=== PATIENT | female | born 1975 | race Caucasian/White ===

== ENCOUNTER 2017-03-06 01:32 | Observation (INO) ==
[2017-03-06] MEDS ORDERED: *HR* Morphine 2 MG/ML SYRINGE IVP PRN (03:50)
[2017-03-06] MEDS ORDERED: Ondansetron 4 MG/2 ML VIAL IVP PRN ×2 (03:51→12:02)
[2017-03-06] MEDS ORDERED: D5% in Lactated Ringers 1,000 ML IVC SCH (04:00)
[2017-03-06] MEDS ORDERED: *HR* HYDROmorphone (PF) 1 MG/ML SYRINGE IVP PRN ×2 (04:30→10:41)
[2017-03-06] MEDS: Piperacillin/Tazobactam 3.375 GM/200 ML BAG IVPB SCH ×2 (05:47→11:51)
[2017-03-06] MEDS ORDERED: Nicotine 21 MG PATCH.TD24 TD SCH ×2 (09:00→12:45)
--- NOTE | 2017-03-06 09:15 | General Surg History&Physical ---
<Josiane Mclaughlin - Last Filed: 03/06/17 09:11> Date of Encounter: 03/06/17 Time of Encounter: 09:11 Assessment and Plan (1) Acute appendicitis Current Visit: Yes Status: Acute Patient presented to the hospital and found to have acute appendicitis on imaging done at [facility]. The surgery was discussed with the patient. She expressed understanding and agreement. All questions were answered. She is to be taken to surgery this morning. Qualifiers: Acute appendicitis type: unspecified acute appendicitis type Qualified Code (s): K35.80 - Unspecified acute appendicitis History of Present Illness Chief complaint: right lower quadrant pain HPI: Ms. Salazar is a 42 year old female with a past medical history of anxiety and GERD who presented to the [facility] as a transfer from [facility]. Appnedicitis was diagnosed upon imaging. She complained of right lower quadrant pain that began yesterday at 3 PM while she was at work. She then left work and went home however the pain continued to progress and worsen. She said it started in her lower back then radiated around to her right side. She described it as sharp. Nothing made it better or worse. She had nausea and dry heaves. She denied fever, chills. She is a current one 1-2 pack per day smoker for 20 years. Denied drug use. Prior surgeries or tubal ligation. Past Med Surg Social Fam HX - Past Medical History Medical history: no medical history, GERD Psychiatric history: anxiety - Past Surgical History Surgical History: other (tubal ligation) - Social History Smoking Status: Current every day smoker Packs per day: 2 Smokeless Tobacco Status: No Alcohol use: occasionally Drug use: none Medications and Allergies Omeprazole [PriLOSEC] 20 mg PO DAILY 03/06/17 [History] Venlafaxine [Effexor] 75 mg PO DAILY 03/06/17 [History] diazePAM [Valium] 5 mg PO TID 03/06/17 [History] 3 Allergy/AdvReac Type Severity Reaction Status Date / Time No Known Allergies Allergy Verified 03/06/17 03:48 Review of Systems All systems PM: A 10-system review of systems was performed and is negative for pertinent findings except as documented above in the HPI. - Constitutional no chills, no fever(s), no headache(s) - Cardiovascular no chest pain, no palpitations - Respiratory no cough, no dyspnea - Gastrointestinal abdominal pain, nausea, no vomiting - Neurological no dizziness - Psychiatric anxiety General Surgery Exam Initial Vital Signs Temp Pulse Resp BP Pulse Ox 99.2 F 96 15 160/90 97 03/06/17 03:10 03/06/17 03:10 03/06/17 03:10 03/06/17 03:10 03/06/17 03:10 - General physical appearance well developed, well nourished, no distress - Eyes normal ocular movement. negative: icteric - Respiratory normal expansion, normal respiratory effort - Cardiovascular Cardiovascular exam: Present: RRR - Abdomen Abdomen general surgery: Present: bowel sounds present, soft, tender Abdominal Tenderness: Present: RLQ - Integumentary Integumentary general surgery: Present: no abnormal pigmentation - Neurologic Present: normal coordination - Psychiatric Psychiatric general surgery: Present: A&Ox3 Results - Labs All other labs normal. <Tian Parish - Last Filed: 03/06/17 09:44> Date of Encounter: 03/06/17 History of Present Illness HPI: Ms. Salazar is a 42 year old female Review of Systems All systems PM: A 10-system review of systems was performed and is negative for pertinent findings except as documented above in the HPI. General Surgery Exam Initial Vital Signs Temp Pulse Resp BP Pulse Ox 99.2 F 96 15 160/90 97 03/06/17 03:10 03/06/17 03:10 03/06/17 03:10 03/06/17 03:10 03/06/17 03:10 Results - Labs All other labs normal. - Attending Attestation patient seen and examined. I have reviewed all pertinent labs, imaging, and pertinent notes, including this one. I agree with the above assessment and plan and wish to add the following... 42M with 2 days of worsening abdominal pain localized to the right side with associated nausea and vomiting (dry heaves), leukocytosis and what looks like fat stranding and acute appendicitis; plan for OR today for lap appy; discussed with the patient, risks, benefits, and alternatives. She is in agreement with surgery
--- NOTE | 2017-03-06 09:28 | Anesthesia Evaluation PreOp ---
Date of Encounter: 03/06/17 Time of Encounter: 09:45 - Past History Planned Operation: lap appy Cardiac History: Denies any Significant Hx Pulmonary History: Smoker, Pack/yr (30+) POST PARTUM NURSE History: Denies Any Significant HX Other Medical History: Denies Any Significant HX Anesthesia History: No Prior Anesthetic Complications, Past Anesthesia (tubal) : No Test: Negative Alcohol Use: occasionally Drug use: none Medications and Allergies Omeprazole [PriLOSEC] 20 mg PO DAILY 03/06/17 [History] Venlafaxine [Effexor] 75 mg PO DAILY 03/06/17 [History] diazePAM [Valium] 5 mg PO TID 03/06/17 [History] 3 Allergy/AdvReac Type Severity Reaction Status Date / Time No Known Allergies Allergy Verified 03/06/17 03:48 - Meds/Allergy Pre-op Review Medications Reviewed: Yes Allergies Reviewed: Yes Beta Blockers on Current Med List: No Anesthesia Exam Selected Entries 03/06/17 06:37 Temperature 98.7 F Pulse Rate 86 Respiratory Rate 14 Blood Pressure 118/69 O2 Sat by Pulse Oximetry 99 Weight: 58kg NPO (# of Hours): 8 - HEENT Pupil (Motor): EOMI Mallampati: II Teeth: Normal Oral Opening: Greater than 3 - POST PARTUM NURSE LOC: Oriented POST PARTUM NURSE Motor: Normal RUE, Normal LUE, Normal RLE, Normal LLE, Normal Face POST PARTUM NURSE Sensory: Normal: RUE, LUE, RLE, LLE, Face - Cardiac Rhythm: Regular Murmur: None - Pulmonary Breath Sounds: bilateral Clear Respiratory Effort: Symmetrical Anesthesia Assess/Plan ASA Score: 2 Modified [place] Scale for Level of Consciousness: Cooperative, oriented, and tranquil Anesthetic Plan: General Monitoring Plan: Standard Monitors Recovery Plan: PACU (agrees to GA)
[2017-03-06] MEDS ORDERED: *HR* Promethazine 25 MG/ML VIAL IVP PRN (10:41)
[2017-03-06] MEDS ORDERED: Ondansetron 4 MG/2 ML VIAL IVP ONE (10:41)
[2017-03-06] MEDS ORDERED: *HR* Labetalol 20 MG/4 ML SYRINGE IVP PRN (10:41)
[2017-03-06] MEDS ORDERED: *HR* Propofol 200 MG/20 ML VIAL IVP ONE (10:44)
[2017-03-06] MEDS ORDERED: *HR* Rocuronium Bromide 50 MG/5 ML VIAL ONE (10:44)
[2017-03-06] MEDS ORDERED: Dexamethasone 4 MG/ML VIAL ONE (10:44)
[2017-03-06] MEDS ORDERED: *HR* FentaNYL (PF) 100 MCG/2 ML VIAL ONE (10:44)
[2017-03-06] MEDS ORDERED: Lidocaine -MPF 2% 2 ML VIAL ONE (10:44)
[2017-03-06] MEDS ORDERED: *HR* Midazolam HCl 2 MG/2 ML VIAL ONE (10:44)
[2017-03-06] MEDS ORDERED: Lacri-Lube 3.5 GM TUBE ONE (10:44)
[2017-03-06] MEDS ORDERED: Lidocaine -MPF 4% 5 ML AMPUL ONE (10:44)
[2017-03-06] MEDS ORDERED: Neostigmine Methylsulfate 3 MG/3 ML SYRINGE ONE (10:50)
[2017-03-06] MEDS ORDERED: *HR* HYDROmorphone 2 MG/ML SYRINGE ONE (10:58)
--- NOTE | 2017-03-06 11:46 | Anesthesia Evaluation Post Op ---
Date of Encounter: 03/06/17 Time of Encounter: 11:45 - Vital Signs Vital Signs: Selected Entries 03/06/17 11:16 03/06/17 11:36 Temperature 97.2 F L Pulse Rate 76 Respiratory Rate 16 Blood Pressure 131/77 O2 Sat by Pulse Oximetry 100 Oxygen Flow Rate (LPM) 2 - Lungs Lungs: Clear Ascult./Percussion - Airway Airway: Non-obstructed - Cardiovascular Regular Rate - Mental Status Mental Status: Alert & Oriented, Answers Appropriately - Nausea Vomiting Nausea Vomiting: Not Present - Hydration Hydration: Ice chips - Discharge PostOp Status: Transfer Patient to floor
--- NOTE | 2017-03-06 11:48 | Operative Note ---
Date of procedure: 03/06/17 Pre-op diagnosis: acute appendicitis Post-op diagnosis: same Procedure: laparoscopic appendectomy Complications: none Anesthesia: GETA Local Anesthetics: 0.5% Sensorcaine HCL SubQ (cc) Surgeon: Tian Parish Was there an certified first assistant present: No Estimated blood loss (cc): 5 Specimen: appendix Condition: stable Disposition: PACU Procedure in Detail: The patient was brought into the operating room suite. The patient was placed in the supine position. Mechanical DVT prophylaxis was initiated. The patient underwent smooth induction of general endotracheal anesthesia. The patient was prepped and draped in the usual fashion. Preoperative antibiotics were given. A timeout was held identifying the correct patient, pathology, and procedure. Everyone was in agreement and we began a procedure. Incision to Mesenteric Window I started bycreating a supraumbilical incision and via open Cha technique entered into the abdomen. I then used a Vicryl suture on a UR 6 needle in a [id number] fashion to reapproximate but not close the fascia. I then inserted the 10 trocar followed by the camera to visualize the intraabdominal cavity. I then created a 5 mm incision suprapubically and inserted the 5 mm trocar under direct visualization. Roughly 1 handbreadth lateral to the umbilical incision I created another 5 mm incision and inserted another 5 mm trocar under direct visualization. I then inserted the nontraumatic instruments into the 5 mm ports and began the procedure. I was able to identify the tinea coli coalescing at the base of the cecum to identify the appendix. The appendix was visibly inflamed. Using the nontraumatic grasper I was able to grasp the appendix and then using the [place] dissector was able to create a mesenteric window. Mesenteric Window to Appendectomy I then inserted the nontraumatic grasper into the same mesenteric window to widen it. I then grasped the appendix and switched from the 10 mm camera to the 5 mm camera so that we can insert the stapler through the umbilical port. The teeth of the stapler through the mesenteric window. It should be stated that the stapler was a 45 mm bowel load stapler. It was positioned at the base of the appendix and I was able to confirm under direct visualization that the teeth contained no other structures such as the cecum. I then fired the stapler and resected the appendix from the base of the cecum. I then loaded up a vascular load stapler and then in the similar fashion did fire across the mesentery. Retrieval to Closure I then inserted the Endo Catch bag to retrieve the specimen which was intact upon retrieval. I then switched back to the 10 mm camera and inserted the nontraumatic grasper as well as a suction-cargo agent into the 5 mm ports. And under direct visualization I was able to appreciate the staple line of the mesoappendix as well as the staple line of the base of the cecum. There was no obvious leaking nor bleeding. The pelvis did not have any collection of fluid. I then concluded the procedure, turned off the insufflation, removed the trochars under direct visualization, and then closed the umbilical fascia using the Vicryl suture that was placed at the beginning. I then closed all incisions with interrupted 4-0 Monocryl. And then sealed with Dermabon. It should be stated that I did use 0.5% Marcaine as a local anesthetic. The patient tolerated the procedure well and did go back to PACU in stable condition.
[2017-03-06] MEDS ORDERED: diazePAM 5 MG TABLET PO SCH (12:02)
[2017-03-06] MEDS ORDERED: D5% in 0.45% NACL 1,000 ML IVC SCH (12:02)
[2017-03-06] MEDS ORDERED: *HR* HYDROcodone/Acet 5/325 mg TABLET PO PRN (12:02)
[2017-03-06] MEDS ORDERED: Ibuprofen 600 MG TABLET PO PRN (12:02)
[2017-03-06 13:32] VITALS: BP 118/76
--- NOTE | 2017-03-06 15:25 | Discharge Summary ---
Date of Encounter: 03/06/17 Time of Encounter: 15:15 - Discharge Diagnosis (1) Acute appendicitis Priority: Primary Status: Resolved Qualifiers: Acute appendicitis type: unspecified acute appendicitis type Qualified Code (s): K35.80 - Unspecified acute appendicitis - Discharge Medications Prescriptions: HYDROcodone/Acet 5/325 mg [Salem 5-325 mg] 1 tab PO Q6HR PRN #20 tablet PRN Reason: Pain (1-5) Ibuprofen [Motrin] 600 mg PO Q6HR PRN #30 tablet PRN Reason: Pain (1-5) Docusate [Colace] 100 mg PO BID #30 capsule Home Medications: Docusate [Colace] 100 mg PO BID #30 capsule 03/06/17 [Rx] HYDROcodone/Acet 5/325 mg [Salem 5-325 mg] 1 tab PO Q6HR PRN #20 tablet [Rx] Ibuprofen [Motrin] 600 mg PO Q6HR PRN #30 tablet 03/06/17 [Rx] Omeprazole [PriLOSEC] 20 mg PO DAILY 03/06/17 [History] Venlafaxine [Effexor] 75 mg PO DAILY 03/06/17 [History] diazePAM [Valium] 5 mg PO TID 03/06/17 [History] Allergies/Adverse Reactions: 3 Allergy/AdvReac Type Severity Reaction Status Date / Time No Known Allergies Allergy Verified 03/06/17 03:48 General Surgery Exam Initial Vital Signs Temp Pulse Resp BP Pulse Ox 99.2 F 96 15 160/90 97 03/06/17 03:10 03/06/17 03:10 03/06/17 03:10 03/06/17 03:10 03/06/17 03:10 Date of admission: 03/06/17 03:02 Primary care physician: Azucena Mason Discharging clinician: Tian Ellis) Anticipated date of discharge: 03/06/17 - Patient Status Disposition: Home, Self-Care Condition: Good Functional capacity at discharge: independent ambulation - Discharge Instructions Follow Up With: Azucena Mason MD [Primary Care Provider] - Jesus Plunkett [Family Provider] - Day Ellis CNP [Advanced Practice Nurse] - 03/18/17 3:00 pm (surgery follow-up) Additional Instructions: #1 may shower starting 03/07/17, no tub bath for 2 weeks #2 wash incisions with soap and water and pat dry daily #3 no lifting, pushing, pulling more than 15 pounds for the next 2 weeks #4 no driving until off narcotics for 24 hours and able to safely react in the car #5 may climb stairs - Diet and Activity Activity: increase activity as tolerated Diet: advance to your usual diet - Hospital Course Hospital course: Ms. Salazar is a 42 year old female who presented to the hospital with complaints of abdominal discomfort. She was found to have acute appendicitis. She was admitted to the hospital started on IV antibiotic therapy and supportive measures. She was taken to the operating room for a laparoscopic appendectomy with Dr. Parish. Postoperatively, she states that her preoperative pain has resolved. She is tolerating liquids without nausea or vomiting. Her vital signs are stable and she is afebrile. Her postoperative pain is well- controlled. She is voiding and ambulating without difficulty. We will begin discharge planning to home and plan for outpatient follow-up with the next 10- 14 days. - Time Spent with Patient Total time spent providing and/or coordinating discharge services: Less than 30 minutes - Attending Attestation For this encounter, I have reviewed the REHAB OFFICE COORDINATOR or PA documentation, treatment plan, and medical decision making; and I have had face to face time with this patient.
== END 2017-03-06 16:18 | disposition home or self-care (01) ==
LOC: 3ANU
PROVIDERS: ADMIT Surgery; ATTEND Surgery